=== PATIENT | male | born 1995 | race Caucasian/White ===

== ENCOUNTER 2022-04-22 20:22 | Emergency (ER) | payer SELFPAY ==
[~2022-04-22] VITALS: Ht 165.1 cm; Wt 78.5 kg
[2022-04-22 20:57] VITALS: BP 138/112
--- NOTE | 2022-04-22 21:03 | NUR ---
PT TO [facility]OBBY
--- NOTE | 2022-04-22 22:07 | NUR ---
CALL FOR PATIENT TO [facility]. NO ANSWER AT THIS TIME
--- NOTE | 2022-04-22 23:00 | NUR ---
called for patient no answer
--- NOTE | 2022-04-22 23:01 | NUR ---
PATIENT LEFT WITHOUT BEING SEEN BY DR. WHELAN. NO FURTHER CARE PROVIDED FOR PATIENT.
== END 2022-04-22 23:01 | disposition left against medical advice (07) ==
LOC: MED 20:22
DX: R51.9 Headache, unspecified (principal); R11.2 Nausea with vomiting, unspecified; R19.7 Diarrhea, unspecified; Z53.21 Procedure and treatment not carried out due to patient leaving prior to being seen by health care provider